=== PATIENT | female | born 1975 | race Caucasian/White ===

== ENCOUNTER 2018-07-09 12:35 | Emergency (ER) | payer OTHER ==
[2018-07-09] MEDS ORDERED: methylPREDNISolone Sod Succ/PF 125 MG/2 ML VIAL ONE (12:44)
[2018-07-09] MEDS ORDERED: EPINEPHrine 1 MG/ML AMP ONE (12:44)
[2018-07-09] MEDS ORDERED: diphenhydrAMINE 50 MG/ML VIAL ONE (12:44)
[2018-07-09] MEDS ORDERED: Ondansetron PF 4 MG/2 ML Vial ONE (12:45)
[2018-07-09] MEDS ORDERED: Sodium Chloride 0.9% 1,000 ML ONE (12:45)
== END 2018-07-09 14:00 | disposition home or self-care (01) ==
LOC: NAV ERS 12:35
DX: L50.0 Allergic urticaria (principal); F41.9 Anxiety disorder, unspecified; Z79.899 Other long term (current) drug therapy
CPT/HCPCS: 96361; 96372; 96374; 96375; J0171; J1200; J2405; J2930; J7050

== ENCOUNTER 2018-09-05 09:45 | Emergency (ER) | payer OTHER ==
[2018-09-05] MEDS ORDERED: Ibuprofen 800 MG TAB ONE (10:10)
--- NOTE | 2018-09-05 10:32 | RAD ---
Radiograph right shoulder 3 views: HISTORY: Traumatic shoulder injury due to fall FINDINGS: No fracture or dislocation IMPRESSION: Negative
== END 2018-09-05 10:51 | disposition home or self-care (01) ==
LOC: NAV ERS 09:45
DX: S43.401A Unspecified sprain of right shoulder joint, initial encounter (principal); F41.9 Anxiety disorder, unspecified; Z79.899 Other long term (current) drug therapy; Z79.891 Long term (current) use of opiate analgesic; W18.30XA Fall on same level, unspecified, initial encounter